=== PATIENT | female | born 1985 | race African-American/Black ===

== ENCOUNTER 2017-03-30 07:15 | Inpatient (IN) | payer OTHER ==
[2017-03-29 10:04] VITALS: BMI 44.2
[2017-03-30] MEDS ORDERED: LIDOCAINE HCL/PF 2% SDV 5ML VIAL ONE (08:43)
[2017-03-30] MEDS ORDERED: SUCCINYLCHOLINE CHLORIDE 200 MG/10 ML VIAL ONE (08:44)
[2017-03-30] MEDS ORDERED: MIDAZOLAM HCL 2 MG/2 ML SINGLE DOSE VIAL ONE (08:44)
[2017-03-30] MEDS ORDERED: ROCURONIUM BROMIDE 50 MG/5 ML VIAL ONE ×2 (08:44→10:29)
[2017-03-30] MEDS ORDERED: PROPOFOL 20 ML ONE ×3 (08:44→12:03)
[2017-03-30] MEDS ORDERED: CLINDAMYCIN PHOSPHATE 900 MG/6 ML VIAL IVPB ONE (10:02)
[2017-03-30] MEDS ORDERED: CLINDAMYCIN PHOSPHATE 600 MG/4 ML VIAL ONE (10:05)
[2017-03-30] MEDS ORDERED: DEXAMETHASONE SOD PHOSPHATE 4 MG/1 ML VIAL ONE ×2 (10:28→11:40)
[2017-03-30] MEDS ORDERED: GLYCOPYRROLATE 0.2 MG/1 ML VIAL ONE (11:40)
[2017-03-30] MEDS ORDERED: NEOSTIGMINE METHYLSULFATE 0.5 MG/ML - 10 ML MDV ONE (11:40)
[2017-03-30] MEDS ORDERED: BUPIVACAINE HCL/PF 0.5% (5MG/ML) 10 ML VIAL IJ ONE (11:40)
[2017-03-30] MEDS ORDERED: HYDROmorphone HCL/PF 1 MG/ML VIAL (FOR PYXIS CHARGING ONLY) ONE (11:49)
[2017-03-30] MEDS ORDERED: ONDANSETRON 4 MG/2 ML VIAL IVPUSH PRN (12:40)
[2017-03-30] MEDS ORDERED: LACTATED RINGERS SOLUTION 1,000 ML IV SCH (12:45)
[2017-03-30 12:52] LABS: BASOPHIL 0.3 % (0-2.0); EOSINOPHIL 0.3 % (0-4.5); MCH 24.4 pg (25.7-33.7); MCHC 32.1 g/dl (32.0-36.0); MEAN CELL VOLUME 75.8 fl (80-96); MEAN PLT VOLUME 10.1 fl (7.5-11.1); NEUTROPHILS 78.8 % (42.8-82.8); PLATELET COUNT 251 K/MM3 (134-434); RDW 14.7 % (11.6-15.6); WHITE BLOOD COUNT 14.3 K/mm3 (4.0-10.0)
[2017-03-30 13:07] LABS: ANION GAP 13 (8-16); CALCIUM 8.1 mg/dL (8.5-10.1); CO2 23 mmol/L (21-32); CREATININE 0.7 mg/dL (0.55-1.02); GLUCOSE,RANDOM 127 mg/dL (74-106)
--- NOTE | 2017-03-30 13:09 | HP ---
Admitting History and Physical - Admission Chief Complaint: 31 female with morbid obesity History Source: Patient Limitations to Obtaining History: No Limitations - Past Medical History ...LMP: 03/23/17 - Past Surgical History Past Surgical History: Yes: Cholecystectomy - Smoking History Smoking history: Never smoked Have you smoked in the past 12 months: No - Alcohol/Substance Use Hx Alcohol Use: No Home Medications - Allergies Allergies/Adverse Reactions: Allergies Allergy/AdvReac Type Severity Reaction Status Date / Time No Known Allergies Allergy Verified 03/30/17 08:31 - Home Medications Home Medications: Ambulatory Orders Metformin HCl 500 mg PO BID 03/29/17 Multivitamin [One Daily] 1 each PO DAILY 03/29/17 Family Disease History - Family Disease History Family History: Unremarkable Review of Systems - Review of Systems Constitutional: denies: Chills, Fever HENT: reports: No Symptoms Neck: reports: No Symptoms Cardiovascular: denies: Chest Pain Respiratory: denies: Cough Gastrointestinal: denies: Abdominal Pain Neurological: denies: Change in LOC Pain Intensity: 0 Physical Examination Vital Signs: Vital Signs Temperature 98.3 F 03/30/17 12:09 Pulse Rate 87 03/30/17 12:55 Respiratory Rate 18 03/30/17 12:55 Blood Pressure 130/77 03/30/17 12:55 O2 Sat by Pulse Oximetry (%) 100 03/30/17 12:55 Constitutional: Yes: Calm HENT: Yes: WNL Neck: Yes: Supple Cardiovascular: Yes: Regular Rate and Rhythm Respiratory: Yes: CTA Bilaterally Gastrointestinal: Yes: Soft, Abdomen, Obese Extremities: Yes: WNL Neurological: Yes: Alert, Oriented Labs: CBC, BMP 03/30/17 12:30 Problem List - Problems (1) Morbid (severe) obesity due to excess calories Code(s): E66.01 - MORBID (SEVERE) OBESITY DUE TO EXCESS CALORIES Assessment/Plan 31 female with morbid obesity For Robotic vertical sleeve gastrectomy
[2017-03-30] MEDS: ACETAMINOPHEN 1000 MG/100 ML VIAL (NON FORMULARY) IVPB SCH ×2 (13:15→21:21)
[2017-03-30] MEDS: METOCLOPRAMIDE HCL INJECTION 10 MG/2 ML VIAL IVPUSH SCH ×2 (14:55→19:08)
[2017-03-30] MEDS: SODIUM CHLORIDE 1,000 ML IV SCH ×2 (14:57→21:20)
[2017-03-30] MEDS: ONDANSETRON 4 MG/2 ML VIAL IVPUSH SCH ×3 (15:04→20:28)
[2017-03-30] MEDS: HYDROmorphone HCL CARPU-JECT 1 MG/1 ML DISP.SYRIN IVPB PRN ×2 (15:08→18:46)
--- NOTE | 2017-03-30 15:39 | OP ---
Operative Note - Note: Operative Date: 03/30/17 Pre-Operative Diagnosis: Morbid obesity Operation: Robotic vertical sleeve gastrectomy, wedge liver biopsy, upper endoscopy/EGD Post-Operative Diagnosis: Other (Morbid obesity, hepatomegaly) Surgeon: Sergei Duque On Site Soil Evaluator: Fredi Richardson Anesthesia: General Specimens Removed: Greater curvature of the stomach, wedge liver biopsy Estimated Blood Loss (mls): 30 Drains & Tubes with Location: 36 Fr Bougie Operative Report Dictated: Yes
--- NOTE | 2017-03-30 16:47 | SPEC ---
DATE OF OPERATION: 03/30/2017 SURGEON: Sergei Duque MD EMPLOYEE COMMUNICATIONS SPECIALIST: Fredi Richardson MD PREOPERATIVE DIAGNOSIS: Morbid obesity due to excess calories. POSTOPERATIVE DIAGNOSES: Morbid obesity due to excess calories, hepatomegaly. PROCEDURE: Robotic vertical sleeve gastrectomy, robotic wedge liver biopsy, and upper endoscopy. SPECIMEN: Greater curvature of the stomach and wedge biopsy of the left lobe of the liver. ESTIMATED BLOOD LOSS: 30 mL DRAINS: None. ANESTHESIA: GET 36-Yoruba bougie. REASON FOR PROCEDURE: This is a 31-year-old female who presented to the office for weight loss options. After describing different options, she decided to proceed with a robotic, possible open vertical sleeve gastrectomy. The risks and benefits of the procedure were explained. RISKS AND BENEFITS: After describing the different options for management of weight loss, the patient decided to proceed with a robotic laparoscopic, possible open vertical sleeve gastrectomy. The patient was seen by the respective subspecialities and cleared for surgery. The risks and benefits of the procedure were explained. These included bleeding, infection, hernia, NV, DVT, PE, injury to surrounding structures including the liver, colon, bowel, spleen, esophagus, vessel injury, nerve injury, weight regain, gastric leak, staple line leak, sleeve leak, obstruction, vitamin deficiency, hair loss, and as some of the possible complications. The patient understood and signed informed consent. DESCRIPTION OF PROCEDURE: The patient was placed supine on the operating room table. The patient underwent general endotracheal intubation. A Quevedo catheter was inserted by the nursing staff. The arms were brought out at 90 degrees and secured. A foot board was placed and the legs were secured laterally with padding. The abdomen was prepped and draped in the usual sterile fashion. A time-out was performed. An incision was made superior and to the left of the umbilicus. A Veress needle was inserted. Pneumoperitoneum was established. Subsequently the Veress needle was removed. An 8-mm robotic trocar was placed under direct visualization with the laparoscope. Inspection of the abdominal cavity was performed. An 8-mm trocar was then placed in the left abdominal wall approximately 6 to 7 cm to the left of the initial trocar. An 8-mm robotic trocar was then placed in the left abdominal wall approximately 6 to 7 cm to the left of the initial trocar. A 12-mm robotic trocar was then placed in the right abdominal wall approximately 6 to 7 cm to the right of the initial trocar and an 8-mm robotic trocar placed approximately 6 to 7 cm lateral to the 12-mm trocar. A stab wound was made in the subxiphoid area and a Pati clamp inserted and removed to dilate the tract. A Jeramy liver retractor was inserted. The post was secured at the bedside by the nursing staff. The patient was placed in steep reverse Trendelenburg position and the Jeramy liver retractor was used to secure the liver towards the anterior abdominal wall. The robot was brought over the field and docked. Dissection was performed at the console. The pylorus was identified and 6 cm proximal to it the lesser sac was entered using the vessel sealer. From this point cephalad all lateral attachments to the greater curvature of the stomach including the short gastric vessels were ligated using the vessel sealer towards the gastrosplenic and gastrophrenic ligaments. Once this was done in its entirety, all tubes within the nasal or oropharyngeal cavity including a temperature probe was confirmed to be removed by Anesthesia. The bougie was then inserted by Anesthesia. Transection of the stomach was then begun staying adjacent to the bougie, but away from the angularis. Transection of the stomach was performed near the portion of the stomach where the lesser sac was entered. Two robotic green jadyn were used at this location. Robotic blue jadyn were then used for the remainder of the transection until the greater curvature of the stomach was fully transected. Again this was done staying close to the bougie. Care was taken to stay away from the angle of His cephalad. The staple line was then inspected. Hemostasis was identified. A leak test was then performed. The stomach was clamped distally to the staple line. Irrigation solution was placed in the left upper quadrant and air insufflated by Anesthesia into the sleeve. No leaks were identified and no obstruction was identified. This was done throughout the staple line. At this point, the irrigation solution was suctioned and again hemostasis noted. A wedge liver biopsy was then performed. A portion of the left lobe of the liver was identified and an edge of it grasped. Using electrocautery a wedge of this portion of the liver was excised. The specimen was removed from the abdominal cavity and sent off the field. Hemostasis of the biopsy site as attained using electrocautery. The robotic instruments were then removed. The robot was undocked from the operative field. The 12-mm robotic trocar was removed and the greater curvature specimen removed from this site using a sponge stick miranda. The specimen was inspected and the Veress needle inserted. The specimen insufflated adequately and no leak was identified. The staple line was noted to be straight and intact. A Delta- Loly device was then used to close the fascia with a 0 Vicryl suture at this site. The liver retractor was removed under direct visualization. Pneumoperitoneum was desufflated and the fascial suture was secured. Hemostasis was noted at all incision sites and Marcaine was injected at all incision sites. All incision sites were closed using 4-0 Biosyn. Sterile dressings were applied. The patient tolerated the procedure well and was transferred to the recovery room in stable condition with a Quevedo catheter intact. The patient was transferred to telemetry for further monitoring. In addition, to further look for a leak after the bougie was removed, an upper endoscopy was performed. The entirety of the esophagus, GE junction, stomach, and the entirety of the staple line was inspected. No evidence of obstruction or leak was noted. The endoscope was removed fully intact. Patient tolerated the procedure well, was transferred to recovery room in stable condition. Sav [id number] MTDD
[2017-03-30] MEDS ORDERED: FLU VACCINE QUAD 60 MCG/0.5 ML (MDV 17-18) IM ONE (17:00)
[2017-03-30 17:49] LABS: MCH 24.8 pg (25.7-33.7); MCHC 32.7 g/dl (32.0-36.0); MEAN CELL VOLUME 75.7 fl (80-96); MEAN PLT VOLUME 10.3 fl (7.5-11.1); PLATELET COUNT 244 K/MM3 (134-434); RDW 14.9 % (11.6-15.6)
[2017-03-30 18:13] LABS: ALBUMIN 4.1 g/dl (3.4-5.0); ALK PHOS 79 U/L (45-117); ANION GAP 13 (8-16); BILIRUBIN,TOTAL 0.6 mg/dL (0.2-1.0); CALCIUM 8.3 mg/dL (8.5-10.1); CO2 23 mmol/L (21-32); CREATININE 0.7 mg/dL (0.55-1.02); GLUCOSE,RANDOM 135 mg/dL (74-106); SGOT/AST 176 U/L (15-37); SGPT/ALT 164 U/L (12-78); TOT PROT 7.6 g/dl (6.4-8.2)
[2017-03-30] MEDS: ENOXAPARIN NA (PORCINE) 40 MG/0.4 ML DISP.SYRIN SQ SCH (21:19)
[2017-03-30] MEDS: FAMOTIDINE 20 MG/50 ML IVPB 50 ML IVPB SCH (21:20)
[2017-03-31] MEDS: METOCLOPRAMIDE HCL INJECTION 10 MG/2 ML VIAL IVPUSH SCH ×4 (00:35→19:25)
[2017-03-31] MEDS: ONDANSETRON 4 MG/2 ML VIAL IVPUSH SCH ×6 (00:35→22:35)
[2017-03-31] MEDS: HYDROmorphone HCL CARPU-JECT 1 MG/1 ML DISP.SYRIN IVPB PRN ×3 (00:35→11:16)
[2017-03-31] MEDS: ACETAMINOPHEN 1000 MG/100 ML VIAL (NON FORMULARY) IVPB SCH ×2 (00:51→06:26)
[2017-03-31] MEDS: SODIUM CHLORIDE 1,000 ML IV SCH ×2 (04:44→13:19)
[2017-03-31 07:32] LABS: MCH 25.1 pg (25.7-33.7); MCHC 33.3 g/dl (32.0-36.0); MEAN CELL VOLUME 75.5 fl (80-96); MEAN PLT VOLUME 11.3 fl (7.5-11.1); PLATELET COUNT 229 K/MM3 (134-434); WHITE BLOOD COUNT 12.4 K/mm3 (4.0-10.0)
[2017-03-31 08:28] LABS: ALK PHOS 76 U/L (45-117); BILIRUBIN,TOTAL 0.6 mg/dL (0.2-1.0); SGOT/AST 201 U/L (15-37); SGPT/ALT 167 U/L (12-78); TOT PROT 7.3 g/dl (6.4-8.2)
--- NOTE | 2017-03-31 08:28 | PN ---
Progress Note (short form) - Note Progress Note: Anesthesia POD#1 S/P LAP Gastric Sleeve under GA VSS,some nausea,mild pain. No complications to anesthesia seen. Adriana Stearns MD.
[2017-03-31] MEDS: ENOXAPARIN NA (PORCINE) 40 MG/0.4 ML DISP.SYRIN SQ SCH ×2 (09:27→22:35)
[2017-03-31] MEDS: FAMOTIDINE 20 MG/50 ML IVPB 50 ML IVPB SCH ×2 (09:27→22:35)
[2017-03-31 10:46] LABS: CREATININE 0.6 mg/dL (0.55-1.02)
[2017-03-31 10:53] LABS: ANION GAP 12 (8-16); CO2 22 mmol/L (21-32); GLUCOSE,RANDOM 91 mg/dL (74-106)
[2017-03-31 11:00] LABS: ALBUMIN 3.8 g/dl (3.4-5.0)
[2017-03-31] MEDS ORDERED: SODIUM CHLORIDE 1,000 ML IV SCH (13:15)
--- NOTE | 2017-03-31 14:41 | PATH ---
Surgical Pathology Report Patient Name: THAO JEFFERS [facility]. Rec. #: [id number] /Age/Gender: 1985 (Age: 31) / F Account: [id number] Location: 4 PEDS/ADOL Taken: 03/30/2017 Received: 03/30/2017 Reported: 03/31/2017 Physicians: Sergei Duque M.D. Specimen(s) Received A: LIVER BIOPSY B: GREATER CURVATURE STOMACH Clinical History Morbid obesity Final Diagnosis LIVER, BIOPSY: BENIGN LIVER PARENCHYMA WITH MINIMAL STEATOSIS. NO INCREASE IN IRON AND FIBROSIS IN PERFORMED SPECIAL STAINS (IRON AND TRICHROME). B. STOMACH, ROBOTIC VERTICAL SLEEVE GASTRECTOMY: PORTION OF STOMACH WITH MILD CHRONIC GASTRITIS. IMMUNOHISTOCHEMICAL STAIN FOR H. PYLORI IS NEGATIVE. Electronically Signed Henrietta Arriaza M.D. Gross Description A. Received in formalin labeled "liver biopsy," is a 1.5 x 0.9 x 0.5 cm schwartz, irregular portion of soft tissue, consistent with a liver biopsy. The specimen is bisected and entirely submitted in one cassette. B. Received in formalin, labeled "greater curvature of the stomach," is a 114 gram, 16.5 x 3.5 x 3.0 cm. portion of stomach with a stapled margin of resection. The serosa is schwartz-paulson with minimal attached fat. The mucosa is schwartz-pink with normal folds. No mucosal masses are identified. Casing Runner sections are submitted in one cassette. /03/30/2017 saudi03/30/2017
[2017-03-31] MEDS: oxyCODONE HCL 5 MG TABLET PO PRN ×2 (15:26→22:53)
--- NOTE | 2017-03-31 16:01 | PN ---
Progress Note (short form) - Note Progress Note: POD 1 No nausea Pain controlled with medication Vital Signs Period Temp Pulse Resp BP Sys/Pena Pulse Ox Last 24 Hr 97.8 F-98.4 F 44-90 18-20 122-154/66-95 98-100 Abd soft, dressings intact CBC, BMP 03/31/17 05:35 03/31/17 05:35 UGI- no leak/obstruction Clears OOB Discharge planning Problem List - Problems (1) Morbid (severe) obesity due to excess calories Code(s): E66.01 - MORBID (SEVERE) OBESITY DUE TO EXCESS CALORIES
--- NOTE | 2017-03-31 16:02 | DS ---
Physical Examination Vital Signs: Vital Signs Temperature 97.8 F 03/31/17 08:34 Pulse Rate 76 03/31/17 14:31 Respiratory Rate 18 03/31/17 08:50 Blood Pressure 142/95 03/31/17 08:34 O2 Sat by Pulse Oximetry (%) 100 03/31/17 14:31 Constitutional: Yes: Calm Neck: Yes: Supple Cardiovascular: Yes: Regular Rate and Rhythm Respiratory: Yes: CTA Bilaterally Gastrointestinal: Yes: Soft Wound/Incision: Yes: Dressing Dry and Intact Labs: CBC, BMP 03/31/17 05:35 03/31/17 05:35 Discharge Summary Reason For Visit: MORBID OBESITY Current Active Problems Hepatomegaly (Acute) Morbid (severe) obesity due to excess calories (Acute) Procedures: Principal: Vertcal sleeve gastrectomy, wedge liver biopsy Condition: Stable - Instructions Diet, Activity, Other Instructions: [facility] Sergei Duque M.D. [address] [place] [address], [address] [facility] [place] [address] Robotic, Bariatric and General Surgery Postoperative Instructions for Bariatric Surgery Activity: Resume normal everyday activity as tolerated. You may walk and climb stairs without any limitation. We encourage you to walk as often as you can Do not lift anything more than 10 pounds for 8 weeks. At that time, you can return to full activity, including the gym, without limitation. Do not drive a motor vehicle while taking prescribes narcotic pain medication. Wound Care: If you have a bandage in place, leave it on for 3 days. At that time you may remove the outer bandage. If there are strips of tape on the skin after removing the outer bandage, leave them in place. They will fall off by themselves. Do not remove them. If there is clear glue on the skin after removing the outer bandage, leave it in place. Do not pick at it or peel it off. You may shower after taking the outer bandage off, 3 days after your surgery. If incisions become red, warm or open, please call the office. Diet: Continue a sugar-free, non-carbonated Clear liquid diet three times a day for the first week-Stage I diet. In addition, you should drink 8 ounces of water every hour. When drinking, sips should be slow and steady, not large and quick. After the first week, call the office to be advanced to the next dietary stage. Do not advance stages until instructed. Your diet will be advanced over the phone each week. Medications/Pain Management: You may resume previous medications unless told otherwise. The pills may be swallowed whole or broken if scored. You may take the prescribed narcotic pain medication as needed. If the narcotic medication is not needed for pain control, you may take Tylenol. Avoid all other pain medications including Advil, Ibuprofen, Motrin, Aspirin, Naprosyn, Aleve, Celebrex. You will receive Pepcid. Please take this twice a day as prescribed. Dizziness,Headaches/Gas Pain: Make sure you are getting enough fluids daily. Patients on diuretics or water pills may need medication adjusted. Some fluids such as broth or Gatorade may help. Gas pains are common in the first few weeks after surgery. At times they can be worse than surgical pain. Walking can help. You can also use Mylanta, Maalox, or Gas-X. Vomiting/Nausea: This may occur if you eat too fast, don't chew, or eat too much. Go back to fluids. If the vomiting or nausea persists, call the office. Constipation/Diarrhea: You may experience a change in bowel habits. Many things affect this, including a decrease in food intake, not enough fluid and taking pain medication. Some people experience diarrhea after the barium swallow in x-ray. If either persist, call the office. Follow up: Call the office at [phone] for an appointment 2 weeks after your surgical procedure. Disposition: HOME - Home Medications Comprehensive Discharge Medication List: Ambulatory Orders Metformin HCl 500 mg PO BID 03/29/17 Multivitamin [One Daily] 1 each PO DAILY 03/29/17 Famotidine [Pepcid] 20 mg PO BID #60 tablet 03/30/17 Oxycodone HCl/Acetaminophen [Percocet 5-325 mg Tablet] 1 - 2 tab PO Q6H #28 tab MDD 4 03/30/17
[2017-03-31] MEDS: ACETAMINOPHEN 325 MG TABLET (FP) PO PRN (22:53)
[2017-04-01] MEDS: METOCLOPRAMIDE HCL INJECTION 10 MG/2 ML VIAL IVPUSH SCH ×2 (00:55→06:54)
[2017-04-01] MEDS: ONDANSETRON 4 MG/2 ML VIAL IVPUSH SCH ×3 (00:55→09:40)
[2017-04-01] MEDS: FAMOTIDINE 20 MG/50 ML IVPB 50 ML IVPB SCH (09:31)
[2017-04-01] MEDS: ENOXAPARIN NA (PORCINE) 40 MG/0.4 ML DISP.SYRIN SQ SCH (09:31)
[2017-04-01] MEDS: oxyCODONE HCL 5 MG TABLET PO PRN (09:36)
[2017-04-01] MEDS: ACETAMINOPHEN 325 MG TABLET (FP) PO PRN (09:37)
[2017-04-01 13:07] VITALS: BP 137/93; PULSE 94; TEMP 98.6
== END 2017-04-01 13:08 | disposition home or self-care (01) | DRG 403 ==
LOC: JSAMEDAYSX 07:15 → EDSTATUS 12:00 → J4S 14:40
PROVIDERS: ADMIT Surgery; ATTEND Surgery
PROC: 0DJ08ZZ Inspection of Upper Intestinal Tract, Via Natural or Artificial Opening Endoscopic (ICD-10-PCS; 2017-03-30)
PROC: 0DB60Z3 Excision of Stomach, Open Approach, Vertical (ICD-10-PCS; principal; 2017-03-30 09:00)
PROC: 0FB00ZX Excision of Liver, Open Approach, Diagnostic (ICD-10-PCS; 2017-03-30 09:00)
DX: E66.01 Morbid (severe) obesity due to excess calories (principal); R16.0 Hepatomegaly, not elsewhere classified; Z68.41 Body mass index [BMI] 40.0-44.9, adult
CPT/HCPCS: 36415; 74241-TC; 80048; 80053; 84703; 85025; 85027; 86850; 86900; 86901; 88305-TC; 90688; 94010; 94760; G0008

== ENCOUNTER 2017-12-14 09:17 | Day surgery (SDC) | payer OTHER ==
[2017-12-14 10:16] VITALS: BMI 28.3
[2017-12-14 11:41] VITALS: TEMP 97.1
[2017-12-14 11:49] VITALS: PULSE 54
[2017-12-14 12:15] VITALS: BP 140/90
--- NOTE | 2017-12-14 14:21 | OP ---
DATE OF OPERATION: 12/14/2017 SURGEON: Palak Duque MD PREOPERATIVE DIAGNOSIS: Esophagogastroduodenoscopy, status post vertical sleeve gastrectomy. POSTOPERATIVE DIAGNOSES: Normal anatomy. Normal gastric pouch. PROCEDURE: Upper endoscopy/esophagogastroduodenoscopy. ESTIMATED BLOOD LOSS: 0 mL. ANESTHESIA: MAC. SPECIMEN: None. REASON FOR PROCEDURE: This is a 32-year-old female who presents for endoscopy, status post vertical sleeve gastrectomy, to evaluate anatomy. The risks and benefits of the procedure were explained. These included bleeding; infection; injury to surrounding structures, including the oral cavity, esophagus, stomach, gastric pouch, duodenum; perforation; abscess formation; PR; DVT; PE as some of the complications. She understood and signed informed consent. DESCRIPTION OF PROCEDURE: The patient was placed supine on the operating room table. She was placed in the left lateral decubitus position. A bite block was placed. She underwent MAC by Anesthesia. A timeout was performed. The endoscope was placed into the patient's mouth. The esophagus, GE junction, gastric pouch, and duodenum were inspected. The gastric pouch was noted to be within normal limits with adequate restriction and no gross abnormalities. The stomach was suctioned and the endoscope removed. The patient tolerated the procedure well and was transferred to the recovery room in stable condition. PALAK DUQUE M.D. [id number] MTDD
== END 2017-12-14 12:43 | disposition home or self-care (01) ==
LOC: JASU-ENDO 09:17
PROVIDERS: ATTEND Surgery
PROC: 0DJ08ZZ Inspection of Upper Intestinal Tract, Via Natural or Artificial Opening Endoscopic (ICD-10-PCS; principal; 2017-12-14 10:00)
DX: Z76.89 Persons encountering health services in other specified circumstances (principal); E66.01 Morbid (severe) obesity due to excess calories; Z98.84 Bariatric surgery status
CPT/HCPCS: 84703

== ENCOUNTER 2018-01-22 19:22 | Emergency (ER) | payer OTHER ==
[2018-01-22 19:45] VITALS: BP 108/91; PULSE 77; TEMP 98.5; BMI 28.3
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
[2018-01-22 20:51] LABS: BASO % 0.7 % (0-2.0); EOS % 1.6 % (0-4.5); HEMOGLOBIN 12.7 GM/dL (10.7-15.3); LYMPH % 53.1 % (8-40); MCH 26.4 pg (25.7-33.7); MCHC 33.3 g/dl (32.0-36.0); MEAN CELL VOLUME 79.1 fl (80-96); MEAN PLT VOLUME 9.9 fl (7.5-11.1); NEUT % 38.6 % (42.8-82.8); PLATELET COUNT 213 K/MM3 (134-434); RDW 15.3 % (11.6-15.6); WHITE BLOOD COUNT 4.4 K/mm3 (4.0-10.0)
[2018-01-22 21:25] LABS: ALBUMIN 4.1 g/dl (3.4-5.0); ANION GAP 8 (8-16); BILIRUBIN,TOTAL 0.8 mg/dL (0.2-1.0); BLOOD UREA NITROGEN 8 mg/dL (7-18); CHLORIDE 107 mmol/L (98-107); CO2 27 mmol/L (21-32); CREATININE 0.8 mg/dL (0.55-1.02); GLUCOSE,RANDOM 101 mg/dL (74-106); LDH 152 U/L (84-246); POTASSIUM 3.9 mmol/L (3.5-5.1); SGOT/AST 12 U/L (15-37); SGPT/ALT 14 U/L (12-78); SODIUM 142 mmol/L (136-145); TOT PROT 7.6 g/dl (6.4-8.2)
[2018-01-22 21:26] LABS: ALK PHOS 80 U/L (45-117)
[2018-01-22] MEDS ORDERED: HIV POST EXPOSURE PROPHYLAXIS KIT NR ONE (22:49)
[2018-01-22] MEDS ORDERED: HIV POST EXPOSURE PROPHYLAXIS KIT PO ONE (22:51)
[2018-01-24 06:06] LABS: HBsAG SCREEN Negative (Negative)
== END 2018-01-22 22:53 | disposition home or self-care (01) ==
LOC: JERFT 19:22
DX: Z77.21 Contact with and (suspected) exposure to potentially hazardous body fluids (principal); S51.832A Puncture wound without foreign body of left forearm, initial encounter; W46.1XXA Contact with contaminated hypodermic needle, initial encounter; Y93.F9 Activity, other caregiving; Y92.128 Other place in nursing home as the place of occurrence of the external cause; Y99.0 Civilian activity done for income or pay
CPT/HCPCS: 36415; 80053; 83615; 84703; 85025; 86317; 86706; 86803; 87340; 87389; 99281-25

== ENCOUNTER 2020-05-08 08:12 | Day surgery (SDC) | payer OTHER ==
[2020-05-08 08:48] VITALS: BMI 31.1
[2020-05-08] MEDS ORDERED: BUPIVACAINE HCL/PF 2.5 MG/ML - 30 ML VIAL IJ ONE (10:33)
[2020-05-08] MEDS ORDERED: MIDAZOLAM HCL 2 MG/2 ML SINGLE DOSE VIAL ONE (10:34)
[2020-05-08] MEDS ORDERED: PROPOFOL 20 ML ONE (10:34)
[2020-05-08] MEDS ORDERED: ONDANSETRON 4 MG/2 ML VIAL ONE ×2 (10:34→11:08)
[2020-05-08] MEDS ORDERED: DEXAMETHASONE SOD PHOSPHATE 4 MG/1 ML VIAL ONE ×2 (10:34→11:08)
[2020-05-08] MEDS ORDERED: LIDOCAINE HCL/PF 2% SDV 5ML VIAL ONE (10:34)
[2020-05-08] MEDS ORDERED: SCOPOLAMINE HYDROBROMIDE 1 PATCH PATCH.TD72 ONE (10:45)
[2020-05-08] MEDS ORDERED: ceFAZolin SODIUM 1 GM VIAL ONE (11:10)
[2020-05-08] MEDS ORDERED: KETOROLAC TROMETHAMINE 30 MG/1 ML VIAL ONE (11:34)
[2020-05-08] MEDS ORDERED: BUPIVACAINE HCL/PF 0.25% (2.5MG/ML) 10 ML VIAL IJ ONE (11:37)
[2020-05-08] MEDS ORDERED: oxyCODONE HCL 5 MG TABLET PO PRN ×2 (12:52)
[2020-05-08] MEDS ORDERED: ONDANSETRON 4 MG/2 ML VIAL IVPUSH PRN (12:52)
[2020-05-08] MEDS ORDERED: LACTATED RINGERS SOLUTION 1,000 ML IV SCH (13:00)
[2020-05-08 13:14] VITALS: TEMP 98.1
[2020-05-08 14:18] VITALS: BP 122/74; PULSE 82
== END 2020-05-08 14:30 | disposition home or self-care (01) ==
LOC: FASU 08:12
PROVIDERS: ATTEND Orthopaedic Surgery
PROC: 0SBC4ZZ Excision of Right Knee Joint, Percutaneous Endoscopic Approach (ICD-10-PCS; 2020-05-08)
PROC: 0SBC4ZZ Excision of Right Knee Joint, Percutaneous Endoscopic Approach (ICD-10-PCS; 2020-05-08)
PROC: 0SBC4ZZ Excision of Right Knee Joint, Percutaneous Endoscopic Approach (ICD-10-PCS; principal; 2020-05-08 11:19)
DX: S83.241A Other tear of medial meniscus, current injury, right knee, initial encounter (principal); S83.281A Other tear of lateral meniscus, current injury, right knee, initial encounter; S83.8X1A Sprain of other specified parts of right knee, initial encounter; M65.861 Other synovitis and tenosynovitis, right lower leg; X58.XXXA Exposure to other specified factors, initial encounter; Y93.9 Activity, unspecified; Y92.9 Unspecified place or not applicable
CPT/HCPCS: 84703; 88304-TC; 94760

== ENCOUNTER 2020-06-29 04:41 | Day surgery (SDC) | payer OTHER ==
[2020-06-24 16:18] VITALS: BMI 30.9
[2020-06-29] MEDS ORDERED: SCOPOLAMINE HYDROBROMIDE 1 PATCH PATCH.TD72 ONE (10:48)
[2020-06-29] MEDS ORDERED: MIDAZOLAM HCL 2 MG/2 ML SINGLE DOSE VIAL ONE (10:50)
[2020-06-29] MEDS ORDERED: PROPOFOL 20 ML ONE ×6 (10:50→13:24)
[2020-06-29] MEDS ORDERED: ONDANSETRON 4 MG/2 ML VIAL IVPUSH PRN (14:04)
[2020-06-29] MEDS ORDERED: oxyCODONE HCL 5 MG TABLET PO PRN (14:04)
[2020-06-29] MEDS ORDERED: LACTATED RINGERS SOLUTION 1,000 ML IV SCH (14:15)
[2020-06-29] MEDS ORDERED: MIDAZOLAM HCL 2 MG/2 ML SINGLE DOSE VIAL IVPUSH ONE (15:44)
[2020-06-29 16:58] VITALS: BP 136/85; PULSE 68; TEMP 97.2
== END 2020-06-29 17:55 | disposition home or self-care (01) ==
LOC: JASU-SURG 04:41
PROVIDERS: ATTEND Obstetrics & Gynecology
PROC: 0UJD8ZZ Inspection of Uterus and Cervix, Via Natural or Artificial Opening Endoscopic (ICD-10-PCS; 2020-06-29)
PROC: 0UB98ZZ Excision of Uterus, Via Natural or Artificial Opening Endoscopic (ICD-10-PCS; principal; 2020-06-29 10:00)
PROC: 0UDB7ZX Extraction of Endometrium, Via Natural or Artificial Opening, Diagnostic (ICD-10-PCS; 2020-06-29 10:00)
DX: N92.1 Excessive and frequent menstruation with irregular cycle (principal); D25.0 Submucous leiomyoma of uterus
CPT/HCPCS: 36415; 84703; 86850; 86900; 86901; 88305-TC; 94760